=== PATIENT | female | born 1970 | race Caucasian/White ===

== ENCOUNTER 2019-04-23 11:28 | Emergency (ER) | payer SELFPAY ==
[~2019-04-23] VITALS: Ht 154.9 cm; Wt 100.0 kg
[~2019-04-23 11:28] MED LIST: BACTRIM DS1 TAB OR; LORTAB 5 OR; NO MEDS
[2019-04-23] MEDS ORDERED: DIFLUCAN100 M1 PO (12:30)
[2019-04-23 12:35] VITALS: BP 158/110
[2019-04-24] MEDS ORDERED: TRAMADOL HCL50 MG PO (16:39)
[2019-04-24] MEDS ORDERED: MOTRIN800 MG PO (16:39)
[2019-04-24] MEDS ORDERED: DOXYCYCL HYC100 MG PO (16:39)
[2019-04-24] MEDS ORDERED: BACTRIM DS1 TAB PO (17:05)
== END 2019-04-23 12:35 | disposition home or self-care (01) | DRG 759 ==
LOC: ED 11:28
DX: B37.3 Candidiasis of vulva and vagina (principal); I10 Essential (primary) hypertension; F17.210 Nicotine dependence, cigarettes, uncomplicated

== ENCOUNTER 2019-04-24 15:54 | Emergency (ER) | payer SELFPAY ==
[~2019-04-24] VITALS: Ht 154.9 cm; Wt 100.0 kg
[~2019-04-24 15:54] MED LIST changes: +DIFLUCAN100 M1 PO
[2019-04-24] MEDS ORDERED: DOXYCYCL HYC100 MG PO (16:39)
[2019-04-24] MEDS ORDERED: MOTRIN800 MG PO (16:39)
[2019-04-24] MEDS ORDERED: TRAMADOL HCL50 MG PO (16:39)
[2019-04-24 16:56] VITALS: BP 158/97
[2019-04-24] MEDS ORDERED: BACTRIM DS1 TAB PO (17:05)
== END 2019-04-24 17:13 | disposition home or self-care (01) | DRG 759 ==
LOC: ED 15:54
DX: N76.2 Acute vulvitis (principal); R50.9 Fever, unspecified; R10.2 Pelvic and perineal pain; I10 Essential (primary) hypertension; F17.210 Nicotine dependence, cigarettes, uncomplicated

== ENCOUNTER 2019-06-03 13:40 | Emergency (ER) | payer SELFPAY ==
[~2019-06-03] VITALS: Ht 154.9 cm; Wt 101.0 kg
[~2019-06-03 13:40] MED LIST changes: +BACTRIM DS1 TAB PO; +DOXYCYCL HYC100 MG PO; +MOTRIN800 MG PO; +TRAMADOL HCL50 MG PO
[2019-06-03] MEDS ORDERED: DIFLUCAN100 M1 PO (15:02)
[2019-06-03] MEDS ORDERED: DOXYCYCL HYC100 MG PO (15:02)
[2019-06-03 15:10] VITALS: BP 139/74
== END 2019-06-03 15:10 | disposition home or self-care (01) ==
LOC: ED 13:40
DX: S30.814A Abrasion of vagina and vulva, initial encounter (principal); I10 Essential (primary) hypertension; F17.210 Nicotine dependence, cigarettes, uncomplicated; X58.XXXA Exposure to other specified factors, initial encounter; Y93.89 Activity, other specified

== ENCOUNTER 2019-06-13 10:55 | Emergency (ER) | payer OTHER ==
[~2019-06-13] VITALS: Ht 154.9 cm; Wt 77.3 kg
[2019-06-13 12:07] VITALS: BP 148/89
== END 2019-06-13 12:07 | disposition home or self-care (01) | DRG 556 ==
LOC: ED 10:55
PROC: 2W3KX1Z Immobilization of Left Finger using Splint (ICD-10-PCS; principal; 2019-06-13)
DX: M79.642 Pain in left hand (principal); S69.92XA Unspecified injury of left wrist, hand and finger(s), initial encounter; W22.09XA Striking against other stationary object, initial encounter; Y93.H3 Activity, building and construction; Y92.008 Other place in unspecified non-institutional (private) residence as the place of occurrence of the external cause; Y99.0 Civilian activity done for income or pay